=== PATIENT | male | born 1970 | race Caucasian/White ===

== ENCOUNTER 2020-07-11 06:31 | Day surgery (SDC) | payer OTHER ==
[2020-07-11] MEDS ORDERED: LACTATED RINGERS 1,000 ML IV ONE ×2 (06:35→08:28)
[2020-07-11] MEDS ORDERED: CEFAZOLIN SODIUM IN 0.9 % NACL 2 GM/100 ML BAG IV ONE (06:36)
[2020-07-11] MEDS ORDERED: BUPIVACAINE 0.25% PF 30 ML VIAL ONE (06:56)
[2020-07-11] MEDS ORDERED: NALOXONE 0.4 MG/ML VIAL IVP PRN (07:07)
[2020-07-11] MEDS ORDERED: ePHEDrine 50 MG/ML VIAL IVP PRN (07:07)
[2020-07-11] MEDS ORDERED: METOCLOPRAMIDE 10 MG/2 ML VIAL IVP PRN (07:07)
[2020-07-11] MEDS ORDERED: HYDROmorphone 0.5 MG/0.5 ML SYRINGE IVP PRN (07:07)
[2020-07-11] MEDS ORDERED: MORPHINE 2 MG/ML CARPUJECT IVP PRN (07:07)
[2020-07-11] MEDS ORDERED: ONDANSETRON 4 MG/2 ML VIAL IVP PRN ×2 (07:07→08:26)
[2020-07-11] MEDS ORDERED: ATROPINE ABBOJECT 1 MG/10 ML SYRINGE IVP PRN (07:07)
[2020-07-11] MEDS ORDERED: fentaNYL 100 MCG/2 ML VIAL IVP PRN (07:07)
[2020-07-11] MEDS ORDERED: fentaNYL 100 MCG/2 ML VIAL IVP ONE (07:15)
[2020-07-11] MEDS ORDERED: PROPOFOL 200 MG/20 ML VIAL IVP ONE (07:15)
[2020-07-11] MEDS ORDERED: LIDOCAINE-MPF 2% 5 ML VIAL IM ONE (07:15)
[2020-07-11] MEDS ORDERED: DEXAMETHASONE 4 MG/ML VIAL IVP ONE (07:15)
[2020-07-11] MEDS ORDERED: GLYCOPYRROLATE 1 MG/5 ML VIAL IVP ONE (07:15)
[2020-07-11] MEDS ORDERED: ONDANSETRON 4 MG/2 ML VIAL IVP ONE (07:15)
[2020-07-11] MEDS ORDERED: LACTATED RINGERS 1,000 ML IV SCH (08:00)
--- NOTE | 2020-07-11 08:03 | ANESTHESIA ---
Pre-Anesthesia VS, & Labs - Diagnosis Right hand extensor tendon laceration - Procedure right hand extensor tendon repair Vital Signs: Temp Pulse Resp BP Pulse Ox 36.2 C L 67 16 133/90 H 100 07/11/20 06:35 07/11/20 06:35 07/11/20 06:35 07/11/20 06:35 07/11/20 06:35 Height: 5 ft 9 in Weight (kg): 78.02 kg Body Mass Index: 25.4 BMI Classification: Overweight - NPO >8 hours Home Medications and Allergies Home Medications: Ambulatory Orders Albuterol Sulfate [Albuterol Sulfate Hfa] 8.5 gm IH PRN 07/07/20 Cimetidine [Heartburn Relief] 200 mg PO PRN 07/07/20 Fluticasone/Salmeterol [Advair 500-50 Diskus] 1 each IH BID 07/07/20 Loratadine [Claritin] 10 mg PO 07/07/20 Omeprazole 20 mg PO 07/07/20 Propranolol HCl 20 mg PO TID 07/07/20 Active Medications Atropine Sulfate () 0.5 mg IVP Q5M PRN PRN Reason: Bradycardia Stop: 07/12/20 07:07 Ephedrine Sulfate () 10 mg IVP Q5M PRN PRN Reason: HYPOTENSION Stop: 07/12/20 07:07 Fentanyl (Fentanyl) 25 - 50 mcg IVP Q5M PRN PRN Reason: BREAKTHROUGH PAIN (2nd Choice) Stop: 07/12/20 07:07 Hydromorphone HCl (Dilaudid Inj Syringe) 0.2 - 0.6 mg IVP Q5M PRN PRN Reason: PAIN (First Choice) Stop: 07/12/20 07:07 Lactated Ringer's (Lr) 1,000 mls @ 100 mls/hr IV .Q10H MARIA DEL CARMEN Stop: 07/11/20 17:59 Metoclopramide HCl (Reglan Inj) 10 mg IVP Q6HR PRN PRN Reason: N/V not relieved by Zofran Morphine Sulfate (Morphine (Carpuject)) 2 - 4 mg IVP Q5M PRN PRN Reason: PAIN (3rd Choice) Stop: 07/12/20 07:07 Naloxone HCl (Narcan) 0.1 mg IVP Q2M PRN PRN Reason: RESP RATE <8 Stop: 07/12/20 07:07 Ondansetron HCl (Zofran Inj) 4 mg IVP ONCE PRN PRN Reason: N/V (First Choice) Stop: 07/12/20 07:07 Albuterol Sulfate [Albuterol Sulfate Hfa] 8.5 gm IH PRN 07/07/20 Cimetidine [Heartburn Relief] 200 mg PO PRN 07/07/20 Fluticasone/Salmeterol [Advair 500-50 Diskus] 1 each IH BID 07/07/20 Loratadine [Claritin] 10 mg PO 07/07/20 Omeprazole 20 mg PO 07/07/20 Propranolol HCl 20 mg PO TID 07/07/20 Allergies/Adverse Reactions: Allergies Allergy/AdvReac Type Severity Reaction Status Date / Time No Known Drug Allergies Allergy Verified 07/07/20 15:51 Anes History & Medical History - Anesthetic History Anesthesia Complications: reports: No previous complications Family history of Anesthesia Complications: Denies Family history of Malignant Hyperthermia: Denies - Medical History Cardiovascular: reports: Hypertension Pulmonary: reports: Asthma Gastrointestinal: reports: GERD (no symptoms currently) Urinary: reports: None Musculoskeletal: reports: Other Endocrine/Autoimmune: reports: None Skin: reports: Other - Surgical History General: Other Exam General: Alert, Oriented x3, Cooperative, No acute distress Dental: WNL Mouth Opening: Greater than 4 Fingerbreadths Neck Mobility: Normal Mallampati classification: II Thyromental Distance: 4-6 cm Respiratory: Lungs clear Cardiovascular: Regular rate, Normal S1, Normal S2, No murmurs Mental/Cognitive Status: Alert/Oriented X3, Normal for patient Cognitive Status: Within normal limits Plan Anesthesia Type: General Consent for Procedure(s) Verified and Reviewed: Yes Code Status: Attempt Resuscitation ASA classification: 2-Mild systemic disease Is this case an emergency?: No
[2020-07-11] MEDS ORDERED: BUPIVACAINE 0.25% PF 30 ML VIAL SUBQ ONE ×2 (08:11)
[2020-07-11] MEDS ORDERED: oxyCODONE 5 MG TABLET PO PRN (08:26)
--- NOTE | 2020-07-11 08:33 | OPERATIVE REPORT ---
Operative Report - Other Other Information/Narrative: Date of Surgery: 11 July 2020 Pre-Op Diagnosis: Right middle finger extensor tendon laceration Procedure: Primary repair of right middle finger extensor tendon Postop Diagnosis: Same Primary Surgeon: Hector Robertson Secondary Surgeon: None Complications: None Tourniquet Time: 21 minutes EBL: 1 cc Postoperative Protocol: Leave splint on until follow-up. Suture tails cut at 2 weeks. Gradual range of motion from 2-6 weeks. No full fist flexion until 6 weeks. Strengthening may begin at 6 weeks. Indication For Surgery: 49-year-old male lacerated the dorsum of his right hand 2 weeks ago and had an unrecognized extensor tendon laceration. He came to my clinic a few days ago complaining of a bump and inability to extend the finger. The risks, benefits, and alternatives were discussed. Risks include pain, bleeding, infection, damage to nearby structures, numbness, lack of symptom relief, implant complications, nonunion, need for further surgery, DVT, PE, stroke, and . Written consent was obtained. Procedure in Detail: The patient was met in the pre-operative hold area on the day of the procedure. The operative extremity was signed and questions were answered. The patient was brought to the operating room and a general anesthet ic was administered. Supine position was used and bony prominences were padded. Standard prepping and draping was performed. A time out confirmed patient identification, laterality, procedure, allergies, antibiotics, and images. An Esmarch was used to exsanguinate the limb and the tourniquet was elevated to 250 mmHg. A 3 cm longitudinal incision was made over the extensor tendon defect. Sharp dissection was brought down to the extensor tendon and it was freed from the surrounding tissue. The ends of the tendon were freely mobile and visualized within the wound. There was no extension into the joint itself. The ends of the tendon were debrided from unhealthy appearing tissue. I then repaired the tendon with 2-0 FiberWire in a [id number] fashion, burying the knots beneath the tendon. This held the repair very nicely and I was able to take him through full range of motion without any stretching of the repair. The wound was then irrigated and closed with Monocryl in the dermis and a running Monocryl in the skin. 10 cc of quarter percent Marcaine plain were placed near the wound and a sterile dressing with a splint holding him in full extension was applied. He was awakened and transferred to recovery room
--- NOTE | 2020-07-11 08:47 | ANESTHESIA POST OP EVALUATION ---
Anesthesia Post Eval - Post Anesthesia Eval Vitals: Last Vital Signs Temp 36.2 C L 07/11/20 08:28 Pulse 68 07/11/20 08:40 Resp 17 07/11/20 08:40 BP 114/85 H 07/11/20 08:40 Pulse Ox 99 07/11/20 08:40 CV Function Including HR & BP: positive: Stable Pain Control: positive: Satisfactory Nausea & Vomiting: positive: Negative Mental Status: positive: Baseline Respiratory Status: Airway Patent Hydration Status: Satisfactory Anesthesia Complications: positive: None
[2020-07-11 09:37] VITALS: BP 124/87
== END 2020-07-11 06:32 | disposition home or self-care (01) ==
LOC: SDS 06:31
PROVIDERS: ATTEND Orthopaedic Surgery
DX: S66.322A Laceration of extensor muscle, fascia and tendon of right middle finger at wrist and hand level, initial encounter (principal); S61.212A Laceration without foreign body of right middle finger without damage to nail, initial encounter; W26.8XXA Contact with other sharp object(s), not elsewhere classified, initial encounter; I10 Essential (primary) hypertension; J45.909 Unspecified asthma, uncomplicated; K21.9 Gastro-esophageal reflux disease without esophagitis; F10.20 Alcohol dependence, uncomplicated